=== PATIENT | female | born 1960 | race American Indian/Alaskan Native ===

== ENCOUNTER 2016-09-13 07:48 | Outpatient (CLI) | payer MEDICAID | END 2016-09-13 07:49 | disposition home or self-care (01) | LOC: WOUND 07:48 | PROVIDERS: ATTEND Internal Medicine | DX: E11.621 Type 2 diabetes mellitus with foot ulcer (principal); L97.423 Non-pressure chronic ulcer of left heel and midfoot with necrosis of muscle; E11.40 Type 2 diabetes mellitus with diabetic neuropathy, unspecified; E78.4 Other hyperlipidemia; I10 Essential (primary) hypertension; Z87.891 Personal history of nicotine dependence | CPT/HCPCS: 82962; G0277; 99183 ==

== ENCOUNTER 2016-09-14 07:48 | Outpatient (CLI) | payer MEDICAID | END 2016-09-14 07:49 | disposition home or self-care (01) | LOC: WOUND 07:48 | PROVIDERS: ATTEND Orthopaedic Surgery | DX: E11.621 Type 2 diabetes mellitus with foot ulcer (principal); L97.423 Non-pressure chronic ulcer of left heel and midfoot with necrosis of muscle; E11.40 Type 2 diabetes mellitus with diabetic neuropathy, unspecified; E78.4 Other hyperlipidemia; I10 Essential (primary) hypertension; Z87.891 Personal history of nicotine dependence | CPT/HCPCS: 82962; G0277; 99183 ==

== ENCOUNTER 2016-09-15 07:40 | Outpatient (CLI) | payer MEDICAID | END 2016-09-15 07:41 | disposition home or self-care (01) | LOC: WOUND 07:40 | PROVIDERS: ATTEND Orthopaedic Surgery | DX: E11.621 Type 2 diabetes mellitus with foot ulcer (principal); L97.421 Non-pressure chronic ulcer of left heel and midfoot limited to breakdown of skin; E11.40 Type 2 diabetes mellitus with diabetic neuropathy, unspecified; I10 Essential (primary) hypertension; E78.4 Other hyperlipidemia; Z87.891 Personal history of nicotine dependence | CPT/HCPCS: 82962; G0277; 99183 ==

== ENCOUNTER 2016-09-16 07:48 | Outpatient (CLI) | payer MEDICAID ==
[2016-09-16] MEDS ORDERED: XYLOCAINE TOPICAL 4% TP ONE ×2 (11:01→11:07)
== END 2016-09-16 07:49 | disposition home or self-care (01) ==
LOC: WOUND 07:48
PROVIDERS: ATTEND Internal Medicine
DX: E11.621 Type 2 diabetes mellitus with foot ulcer (principal); L97.421 Non-pressure chronic ulcer of left heel and midfoot limited to breakdown of skin; E11.40 Type 2 diabetes mellitus with diabetic neuropathy, unspecified; I10 Essential (primary) hypertension; E78.4 Other hyperlipidemia; Z87.891 Personal history of nicotine dependence
CPT/HCPCS: 11042; 82962; G0277; 99183

== ENCOUNTER 2016-09-20 07:59 | Outpatient (CLI) | payer MEDICAID | END 2016-09-20 08:00 | disposition home or self-care (01) | LOC: WOUND 07:59 | PROVIDERS: ATTEND Internal Medicine | DX: E11.621 Type 2 diabetes mellitus with foot ulcer (principal); L97.421 Non-pressure chronic ulcer of left heel and midfoot limited to breakdown of skin; E11.40 Type 2 diabetes mellitus with diabetic neuropathy, unspecified; I10 Essential (primary) hypertension; E78.4 Other hyperlipidemia; Z87.891 Personal history of nicotine dependence | CPT/HCPCS: 82962; G0277; 99183 ==

== ENCOUNTER 2016-09-21 07:46 | Outpatient (CLI) | payer MEDICAID | END 2016-09-21 07:47 | disposition home or self-care (01) | LOC: WOUND 07:46 | PROVIDERS: ATTEND Orthopaedic Surgery | DX: E11.621 Type 2 diabetes mellitus with foot ulcer (principal); L97.423 Non-pressure chronic ulcer of left heel and midfoot with necrosis of muscle; E11.40 Type 2 diabetes mellitus with diabetic neuropathy, unspecified; E78.4 Other hyperlipidemia; I10 Essential (primary) hypertension; Z87.891 Personal history of nicotine dependence | CPT/HCPCS: 82962; G0277; 99183 ==

== ENCOUNTER 2016-09-23 07:43 | Outpatient (CLI) | payer MEDICAID ==
[2016-09-23] MEDS ORDERED: XYLOCAINE TOPICAL 2% ONE (12:00)
[2016-09-23] MEDS ORDERED: XYLOCAINE TOPICAL 2% TP ONE (12:01)
[2016-09-23] MEDS ORDERED: SILVER NITRATE TP ONE ×2 (12:16→15:06)
== END 2016-09-23 07:44 | disposition home or self-care (01) ==
LOC: WOUND 07:43
PROVIDERS: ATTEND Internal Medicine
DX: E11.621 Type 2 diabetes mellitus with foot ulcer (principal); L97.421 Non-pressure chronic ulcer of left heel and midfoot limited to breakdown of skin; E11.40 Type 2 diabetes mellitus with diabetic neuropathy, unspecified; I10 Essential (primary) hypertension; E78.4 Other hyperlipidemia; Z87.891 Personal history of nicotine dependence
CPT/HCPCS: 11042; 82962; G0277; 99183

== ENCOUNTER 2016-09-26 07:45 | Outpatient (CLI) | payer MEDICAID | END 2016-09-26 07:46 | disposition home or self-care (01) | LOC: WOUND 07:45 | PROVIDERS: ATTEND Orthopaedic Surgery | DX: E11.621 Type 2 diabetes mellitus with foot ulcer (principal); L97.423 Non-pressure chronic ulcer of left heel and midfoot with necrosis of muscle; E11.40 Type 2 diabetes mellitus with diabetic neuropathy, unspecified; I10 Essential (primary) hypertension; E78.4 Other hyperlipidemia; Z87.891 Personal history of nicotine dependence | CPT/HCPCS: 82962; G0277; 99183 ==

== ENCOUNTER 2016-09-27 07:47 | Outpatient (CLI) | payer MEDICAID | END 2016-09-27 07:48 | disposition home or self-care (01) | LOC: WOUND 07:47 | PROVIDERS: ATTEND Podiatrist | DX: E11.621 Type 2 diabetes mellitus with foot ulcer (principal); L97.423 Non-pressure chronic ulcer of left heel and midfoot with necrosis of muscle; E11.40 Type 2 diabetes mellitus with diabetic neuropathy, unspecified; E78.4 Other hyperlipidemia; I10 Essential (primary) hypertension; Z87.891 Personal history of nicotine dependence | CPT/HCPCS: 82962; G0277; 99183 ==

== ENCOUNTER 2016-09-28 07:49 | Outpatient (CLI) | payer MEDICAID | END 2016-09-28 07:50 | disposition home or self-care (01) | LOC: WOUND 07:49 | PROVIDERS: ATTEND Orthopaedic Surgery | DX: E11.621 Type 2 diabetes mellitus with foot ulcer (principal); L97.423 Non-pressure chronic ulcer of left heel and midfoot with necrosis of muscle; E11.40 Type 2 diabetes mellitus with diabetic neuropathy, unspecified; E78.4 Other hyperlipidemia; I10 Essential (primary) hypertension; Z87.891 Personal history of nicotine dependence | CPT/HCPCS: 82962; G0277; 99183 ==

== ENCOUNTER 2016-09-29 07:44 | Outpatient (CLI) | payer MEDICAID | END 2016-09-29 07:45 | disposition home or self-care (01) | LOC: WOUND 07:44 | PROVIDERS: ATTEND Orthopaedic Surgery | DX: E11.621 Type 2 diabetes mellitus with foot ulcer (principal); L97.423 Non-pressure chronic ulcer of left heel and midfoot with necrosis of muscle; E11.40 Type 2 diabetes mellitus with diabetic neuropathy, unspecified; E78.4 Other hyperlipidemia; I10 Essential (primary) hypertension; Z87.891 Personal history of nicotine dependence | CPT/HCPCS: 82962; G0277; 99183 ==

== ENCOUNTER 2016-09-30 07:48 | Outpatient (CLI) | payer MEDICAID ==
[2016-09-30] MEDS ORDERED: XYLOCAINE TOPICAL 2% ONE (10:39)
[2016-09-30] MEDS ORDERED: XYLOCAINE TOPICAL 2% TP ONE (14:35)
== END 2016-09-30 07:49 | disposition home or self-care (01) ==
LOC: WOUND 07:48
PROVIDERS: ATTEND Podiatrist
DX: E11.621 Type 2 diabetes mellitus with foot ulcer (principal); L97.423 Non-pressure chronic ulcer of left heel and midfoot with necrosis of muscle; E11.40 Type 2 diabetes mellitus with diabetic neuropathy, unspecified; E78.4 Other hyperlipidemia; I10 Essential (primary) hypertension; Z87.891 Personal history of nicotine dependence
CPT/HCPCS: 11042; 82962; G0277; 99183

== ENCOUNTER 2016-10-03 07:47 | Outpatient (CLI) | payer MEDICAID | END 2016-10-03 07:48 | disposition home or self-care (01) | LOC: WOUND 07:47 | PROVIDERS: ATTEND Orthopaedic Surgery | DX: E11.621 Type 2 diabetes mellitus with foot ulcer (principal); L97.423 Non-pressure chronic ulcer of left heel and midfoot with necrosis of muscle; E11.40 Type 2 diabetes mellitus with diabetic neuropathy, unspecified; E78.4 Other hyperlipidemia; I10 Essential (primary) hypertension; Z87.891 Personal history of nicotine dependence | CPT/HCPCS: 82962; G0277; 99183 ==

== ENCOUNTER 2016-10-04 07:44 | Outpatient (CLI) | payer MEDICAID ==
[2016-10-04] MEDS ORDERED: XYLOCAINE TOPICAL 2% TP ONE ×3 (10:45→12:07)
== END 2016-10-04 07:45 | disposition home or self-care (01) ==
LOC: WOUND 07:44
PROVIDERS: ATTEND Podiatrist
DX: E11.621 Type 2 diabetes mellitus with foot ulcer (principal); L97.423 Non-pressure chronic ulcer of left heel and midfoot with necrosis of muscle; E11.40 Type 2 diabetes mellitus with diabetic neuropathy, unspecified; M79.672 Pain in left foot; I10 Essential (primary) hypertension; E78.5 Hyperlipidemia, unspecified; Z87.891 Personal history of nicotine dependence
CPT/HCPCS: 11042; 82962; G0277; 99183

== ENCOUNTER 2016-10-11 10:45 | Outpatient (CLI) | payer MEDICAID ==
[2016-10-11] MEDS ORDERED: XYLOCAINE TOPICAL 2% ONE (10:54)
[2016-10-11] MEDS ORDERED: XYLOCAINE TOPICAL 2% TP ONE ×2 (11:08→12:18)
== END 2016-10-11 10:46 | disposition home or self-care (01) ==
LOC: WOUND 10:45
PROVIDERS: ATTEND Podiatrist
DX: E11.621 Type 2 diabetes mellitus with foot ulcer (principal); L97.423 Non-pressure chronic ulcer of left heel and midfoot with necrosis of muscle; L97.411 Non-pressure chronic ulcer of right heel and midfoot limited to breakdown of skin; E11.40 Type 2 diabetes mellitus with diabetic neuropathy, unspecified; M79.672 Pain in left foot; L84 Corns and callosities; I10 Essential (primary) hypertension; E78.5 Hyperlipidemia, unspecified; Z87.891 Personal history of nicotine dependence
CPT/HCPCS: 11056

== ENCOUNTER 2016-10-18 10:45 | Outpatient (CLI) | payer MEDICAID ==
[~2016-10-18 10:45] MED LIST: XYLOCAINE TOPICAL 2% ONE
[2016-10-18] MEDS ORDERED: XYLOCAINE TOPICAL 2% TP ONE (12:22)
== END 2016-10-18 10:46 | disposition home or self-care (01) ==
LOC: WOUND 10:45
PROVIDERS: ATTEND Podiatrist
DX: E11.621 Type 2 diabetes mellitus with foot ulcer (principal); L97.423 Non-pressure chronic ulcer of left heel and midfoot with necrosis of muscle; E11.40 Type 2 diabetes mellitus with diabetic neuropathy, unspecified; I10 Essential (primary) hypertension; E78.5 Hyperlipidemia, unspecified; Z87.891 Personal history of nicotine dependence

== ENCOUNTER 2016-10-25 10:04 | Outpatient (CLI) | payer MEDICAID ==
[2016-10-25] MEDS ORDERED: XYLOCAINE TOPICAL 4% TP ONE (10:14)
[2016-10-25] MEDS ORDERED: XYLOCAINE TOPICAL 2% TP ONE (15:23)
== END 2016-10-25 10:05 | disposition home or self-care (01) ==
LOC: WOUND 10:04
PROVIDERS: ATTEND Podiatrist
DX: E11.621 Type 2 diabetes mellitus with foot ulcer (principal); L97.423 Non-pressure chronic ulcer of left heel and midfoot with necrosis of muscle; E11.40 Type 2 diabetes mellitus with diabetic neuropathy, unspecified; E78.5 Hyperlipidemia, unspecified; I10 Essential (primary) hypertension; Z87.891 Personal history of nicotine dependence

== ENCOUNTER 2016-11-01 10:09 | Outpatient (CLI) | payer MEDICAID ==
[2016-11-01] MEDS ORDERED: XYLOCAINE TOPICAL 4% TP ONE ×2 (10:42→11:05)
[2016-11-01] MEDS ORDERED: AD OINTMENT TP ONE (11:26)
[2016-11-02] MEDS ORDERED: AD OINTMENT TP SCH (10:00)
== END 2016-11-01 10:10 | disposition home or self-care (01) ==
LOC: WOUND 10:09
PROVIDERS: ATTEND Podiatrist
DX: E11.621 Type 2 diabetes mellitus with foot ulcer (principal); L97.423 Non-pressure chronic ulcer of left heel and midfoot with necrosis of muscle; E11.40 Type 2 diabetes mellitus with diabetic neuropathy, unspecified; I10 Essential (primary) hypertension; E78.5 Hyperlipidemia, unspecified; Z87.891 Personal history of nicotine dependence
CPT/HCPCS: A6250

== ENCOUNTER 2016-11-22 10:03 | Outpatient (CLI) | payer MEDICAID ==
[2016-11-22] MEDS ORDERED: XYLOCAINE TOPICAL 4% TP ONE ×2 (10:10→11:00)
== END 2016-11-22 10:04 | disposition home or self-care (01) ==
LOC: WOUND 10:03
PROVIDERS: ATTEND Podiatrist
DX: E11.621 Type 2 diabetes mellitus with foot ulcer (principal); L97.422 Non-pressure chronic ulcer of left heel and midfoot with fat layer exposed; E11.40 Type 2 diabetes mellitus with diabetic neuropathy, unspecified; I10 Essential (primary) hypertension; E78.5 Hyperlipidemia, unspecified; H53.8 Other visual disturbances; Z87.891 Personal history of nicotine dependence

== ENCOUNTER 2016-11-29 10:14 | Outpatient (CLI) | payer MEDICAID ==
[2016-11-29] MEDS ORDERED: XYLOCAINE TOPICAL 2% TP ONE ×2 (10:34→13:24)
== END 2016-11-29 10:15 | disposition home or self-care (01) ==
LOC: WOUND 10:14
PROVIDERS: ATTEND Podiatrist
DX: E11.621 Type 2 diabetes mellitus with foot ulcer (principal); L97.422 Non-pressure chronic ulcer of left heel and midfoot with fat layer exposed; E11.40 Type 2 diabetes mellitus with diabetic neuropathy, unspecified; I10 Essential (primary) hypertension; E78.5 Hyperlipidemia, unspecified; Z87.891 Personal history of nicotine dependence

== ENCOUNTER 2016-12-13 10:06 | Outpatient (CLI) | payer MEDICAID ==
[2016-12-13] MEDS ORDERED: XYLOCAINE TOPICAL 2% ONE (10:24)
[2016-12-13] MEDS ORDERED: XYLOCAINE TOPICAL 2% TP ONE (15:34)
== END 2016-12-13 10:07 | disposition home or self-care (01) ==
LOC: WOUND 10:06
PROVIDERS: ATTEND Podiatrist
DX: E11.621 Type 2 diabetes mellitus with foot ulcer (principal); L97.422 Non-pressure chronic ulcer of left heel and midfoot with fat layer exposed; E11.40 Type 2 diabetes mellitus with diabetic neuropathy, unspecified; E78.5 Hyperlipidemia, unspecified; I10 Essential (primary) hypertension; R26.9 Unspecified abnormalities of gait and mobility; Z87.891 Personal history of nicotine dependence

== ENCOUNTER 2016-12-30 08:35 | Outpatient (CLI) | payer MEDICAID ==
[2016-12-30] MEDS ORDERED: XYLOCAINE TOPICAL 2% ONE (08:58)
[2016-12-30] MEDS ORDERED: AD OINTMENT TP ONE (09:37)
[2016-12-30] MEDS ORDERED: XYLOCAINE TOPICAL 4% TP ONE (12:36)
[2016-12-31] MEDS ORDERED: AD OINTMENT TP SCH (10:00)
== END 2016-12-30 08:36 | disposition home or self-care (01) ==
LOC: WOUND 08:35
PROVIDERS: ATTEND Podiatrist
DX: E11.621 Type 2 diabetes mellitus with foot ulcer (principal); L97.421 Non-pressure chronic ulcer of left heel and midfoot limited to breakdown of skin; E11.40 Type 2 diabetes mellitus with diabetic neuropathy, unspecified; I10 Essential (primary) hypertension; E78.5 Hyperlipidemia, unspecified; Z87.891 Personal history of nicotine dependence
CPT/HCPCS: A6250

== ENCOUNTER 2017-01-03 11:22 | Outpatient (CLI) | payer MEDICAID ==
[2017-01-03] MEDS ORDERED: XYLOCAINE TOPICAL 2% ONE (11:45)
[2017-01-03] MEDS ORDERED: XYLOCAINE TOPICAL 4% TP ONE (16:03)
== END 2017-01-03 11:23 | disposition home or self-care (01) ==
LOC: WOUND 11:22
PROVIDERS: ATTEND Podiatrist
DX: E11.621 Type 2 diabetes mellitus with foot ulcer (principal); L97.422 Non-pressure chronic ulcer of left heel and midfoot with fat layer exposed; E11.40 Type 2 diabetes mellitus with diabetic neuropathy, unspecified; I10 Essential (primary) hypertension; E78.5 Hyperlipidemia, unspecified; Z87.891 Personal history of nicotine dependence

== ENCOUNTER 2017-01-17 10:11 | Outpatient (CLI) | payer MEDICAID ==
[2017-01-17] MEDS ORDERED: XYLOCAINE TOPICAL 2% ONE (10:49)
[2017-01-17] MEDS ORDERED: XYLOCAINE TOPICAL 2% TP ONE (12:00)
== END 2017-01-17 10:12 | disposition home or self-care (01) ==
LOC: WOUND 10:11
PROVIDERS: ATTEND Surgery
DX: E11.621 Type 2 diabetes mellitus with foot ulcer (principal); L97.422 Non-pressure chronic ulcer of left heel and midfoot with fat layer exposed; E11.40 Type 2 diabetes mellitus with diabetic neuropathy, unspecified; E78.5 Hyperlipidemia, unspecified; I10 Essential (primary) hypertension; Z87.891 Personal history of nicotine dependence
CPT/HCPCS: 99214; G0463

== ENCOUNTER 2017-01-31 10:14 | Outpatient (CLI) | payer MEDICAID ==
[2017-01-31] MEDS ORDERED: XYLOCAINE TOPICAL 4% TP ONE ×2 (10:46→14:17)
== END 2017-01-31 10:15 | disposition home or self-care (01) ==
LOC: WOUND 10:14
PROVIDERS: ATTEND Surgery
DX: E11.621 Type 2 diabetes mellitus with foot ulcer (principal); L97.422 Non-pressure chronic ulcer of left heel and midfoot with fat layer exposed; E11.40 Type 2 diabetes mellitus with diabetic neuropathy, unspecified; I10 Essential (primary) hypertension; E78.5 Hyperlipidemia, unspecified; Z87.891 Personal history of nicotine dependence
CPT/HCPCS: 97597

== ENCOUNTER 2017-02-14 10:12 | Outpatient (CLI) | payer MEDICAID ==
[2017-02-14] MEDS ORDERED: XYLOCAINE TOPICAL 2% ONE (10:52)
[2017-02-14] MEDS ORDERED: SILVER NITRATE TP ONE ×2 (11:22→11:51)
[2017-02-14] MEDS ORDERED: XYLOCAINE TOPICAL 2% TP ONE (11:50)
== END 2017-02-14 10:13 | disposition home or self-care (01) ==
LOC: WOUND 10:12
PROVIDERS: ATTEND Surgery
DX: E11.621 Type 2 diabetes mellitus with foot ulcer (principal); L97.421 Non-pressure chronic ulcer of left heel and midfoot limited to breakdown of skin; E11.40 Type 2 diabetes mellitus with diabetic neuropathy, unspecified; E78.5 Hyperlipidemia, unspecified; I10 Essential (primary) hypertension; Z87.891 Personal history of nicotine dependence

== ENCOUNTER 2017-02-28 10:01 | Outpatient (CLI) | payer MEDICAID ==
[2017-02-28] MEDS ORDERED: XYLOCAINE TOPICAL 2% TP ONE (10:19)
[2017-02-28] MEDS ORDERED: XYLOCAINE TOPICAL 2% ONE (10:20)
[2017-03-02] MEDS ORDERED: NACL 0.9% 1000 ML 1,000 ML ONE (16:26)
== END 2017-02-28 10:02 | disposition home or self-care (01) ==
LOC: WOUND 10:01
PROVIDERS: ATTEND Surgery
DX: E11.621 Type 2 diabetes mellitus with foot ulcer (principal); L97.422 Non-pressure chronic ulcer of left heel and midfoot with fat layer exposed; E11.40 Type 2 diabetes mellitus with diabetic neuropathy, unspecified; I10 Essential (primary) hypertension; E78.5 Hyperlipidemia, unspecified; Z87.891 Personal history of nicotine dependence

== ENCOUNTER 2017-03-21 10:04 | Outpatient (CLI) | payer MEDICAID | END 2017-03-21 10:05 | disposition home or self-care (01) | LOC: WOUND 10:04 | PROVIDERS: ATTEND Surgery | DX: E11.621 Type 2 diabetes mellitus with foot ulcer (principal); L97.422 Non-pressure chronic ulcer of left heel and midfoot with fat layer exposed; E11.40 Type 2 diabetes mellitus with diabetic neuropathy, unspecified; I10 Essential (primary) hypertension; E78.5 Hyperlipidemia, unspecified; Z87.891 Personal history of nicotine dependence | CPT/HCPCS: 99213; G0463 ==

== ENCOUNTER 2020-07-18 09:41 | Observation (INO) | payer MEDICAID ==
[2020-07-18] MEDS ORDERED: levoFLOXacin 750 MG TAB PO ONE (10:56)
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
[2020-07-18 11:54] LABS: Alanine Aminotransferase 11 units/L (7-56); Albumin 2.9 g/dL (3.9-5); BUN/Creatinine Ratio 28; Blood Urea Nitrogen 68 mg/dL (7-17); Calcium 8.5 mg/dL (8.4-10.2); Hemolysis Index 43
[2020-07-18 12:00] LABS: Basophils # (Auto) 0.1 K/mm3 (0.0-0.1); Basophils % (Auto) 0.8 % (0.0-1.8); Eosinophils % (Auto) 0.6 % (0.0-4.3); Hematocrit 28.5 % (30.3-42.9); Hemoglobin 8.9 gm/dl (10.1-14.3); Lymphocytes # (Auto) 1.5 K/mm3 (1.2-5.4); Lymphocytes % (Auto) 18.4 % (13.4-35.0); Mean Corpuscular HGB Conc 31 % (30-34); Mean Corpuscular Volume 79 fl (79-97); Monocytes # (Auto) 0.7 K/mm3 (0.0-0.8); Monocytes % (Auto) 8.5 % (0.0-7.3); Platelet Count 180 K/mm3 (140-440); Red Blood Count 3.63 M/mm3 (3.65-5.03); Red Cell Distribution Width 16.7 % (13.2-15.2)
[2020-07-18] MEDS ORDERED: SODIUM CHLORIDE 0.9% 1000 ML 1,000 ML IV ONE (12:09)
--- NOTE | 2020-07-18 12:43 | Cat Scan Report ---
CT HEAD WITHOUT CONTRAST INDICATION / CLINICAL INFORMATION: confusion ams. TECHNIQUE: All CT scans at this location are performed using CT dose reduction for ALARA by means of automated exposure control. COMPARISON: 07/14/2020 FINDINGS: HEMORRHAGE: None. EXTRA-AXIAL SPACES: Normal in size and morphology for the patient's age. VENTRICULAR SYSTEM: Normal in size and morphology for the patient's age. There is developmental asymm etry between the right and left lateral ventricles. This is unchanged. CEREBRAL PARENCHYMA: No significant abnormality. No acute territorial infarct. MIDLINE SHIFT / HERNIATION: None. CEREBELLUM / BRAINSTEM: There is a low-density lesion noted in the bones. This is more apparent on to day's study suggesting an evolving pontine infarction. ORBITS: Normal as visualized. SOFT TISSUES: No significant abnormality. SKULL: No significant abnormality. PARANASAL SINUSES / MASTOID AIR CELLS: There is a mucous retention cyst or polyp in the left maxillar y sinus which is unchanged ADDITIONAL FINDINGS: None. IMPRESSION: 1. There is decreased attenuation in the pontine lesion described on the prior study. There is no oth er significant change. No acute intracranial hemorrhage is seen. Signer Name: Franco Zabala MD Signed: 07/18/2020 12:38 PM Workstation Name: [id number]
[2020-07-18] MEDS ORDERED: oxyCODONE /ACETAMINOPHEN 5-325MG TAB PO PRN (15:11)
[2020-07-18] MEDS ORDERED: ACETAMINOPHEN 325 MG TAB PO PRN (15:13)
[2020-07-18] MEDS ORDERED: ONDANSETRON 4 MG/2 ML INJ IV PRN (15:13)
[2020-07-18] MEDS ORDERED: SODIUM CHLORIDE 0.9% 1000 ML 1,000 ML IV SCH (15:15)
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
[2020-07-18] MEDS ORDERED: levoFLOXacin 500 MG TAB PO SCH (16:00)
[2020-07-18] MEDS ORDERED: SODIUM POLYSTYRENE 15 GM/60 ML ORAL LIQD PO ONE (16:15)
[2020-07-18] MEDS ORDERED: SENNOSIDES/DOCUSATE SODIUM 8.6/50 MG TAB PO SCH (22:00)
[2020-07-18] MEDS ORDERED: SIMVASTATIN 10 MG PO SCH (22:00)
[2020-07-18] MEDS: HEPARIN 5,000 UNIT/1 ML VIAL SUB-Q SCH (22:43)
[2020-07-19 06:25] LABS: Basophils % (Auto) 0.8 % (0.0-1.8); Eosinophils # (Auto) 0.2 K/mm3 (0.0-0.4); Eosinophils % (Auto) 2.5 % (0.0-4.3); Hematocrit 25.7 % (30.3-42.9); Lymphocytes # (Auto) 1.2 K/mm3 (1.2-5.4); Lymphocytes % (Auto) 19.4 % (13.4-35.0); Mean Corpuscular HGB Conc 31 % (30-34); Mean Corpuscular Volume 80 fl (79-97); Monocytes # (Auto) 0.8 K/mm3 (0.0-0.8); Monocytes % (Auto) 12.5 % (0.0-7.3); Platelet Count 153 K/mm3 (140-440); Red Blood Count 3.23 M/mm3 (3.65-5.03); Red Cell Distribution Width 16.5 % (13.2-15.2)
[2020-07-19 06:51] LABS: Calcium 8.2 mg/dL (8.4-10.2)
[2020-07-19] MEDS: HEPARIN 5,000 UNIT/1 ML VIAL SUB-Q SCH (10:23)
[2020-07-19 12:28] VITALS: BP 135/46
--- NOTE | 2020-07-19 14:50 | Discharge Summary ---
Providers - Providers Date of Admission: 07/18/20 13:32 Attending physician: LEANN ORTIZ 07/19/20 04:49 Consult to Wound/ET Nurse [CONS] Routine Reason For Exam: wound eval Primary care physician: BRIM PLATER Hospitalization Condition: Stable Core Measure Documentation - Palliative Care Palliative Care/ Comfort Measures: Not Applicable Exam - Constitutional Vitals: Temp Pulse Resp BP Pulse Ox 98.1 F 75 20 135/46 98 07/19/20 12:27 07/19/20 12:27 07/19/20 12:27 07/19/20 12:27 07/19/20 12:27 Plan Follow up with: PRIMARY CARE, [Primary Care Provider] - 3-5 Days
[2020-07-19] MEDS ORDERED: levoFLOXacin 250 MG TAB PO SCH (16:00)
== END 2020-07-19 17:25 | disposition home or self-care (01) ==
LOC: ED 09:41 → 4A 13:32
PROVIDERS: ADMIT Internal Medicine; ATTEND Internal Medicine
DX: G93.41 Metabolic encephalopathy (principal); N17.9 Acute kidney failure, unspecified; E11.9 Type 2 diabetes mellitus without complications; I10 Essential (primary) hypertension; G82.20 Paraplegia, unspecified; N28.9 Disorder of kidney and ureter, unspecified; N39.0 Urinary tract infection, site not specified; R41.82 Altered mental status, unspecified; E87.5 Hyperkalemia; D64.9 Anemia, unspecified; M19.90 Unspecified osteoarthritis, unspecified site; Z90.49 Acquired absence of other specified parts of digestive tract; Z79.4 Long term (current) use of insulin
CPT/HCPCS: 36415; 70450; 80048; 80053; 82140; 82962; 85025; 87116; 96360; 96361; 96372; 99284; A9270; G0378; J1644; J7030